=== PATIENT | female | born 1980 | race Two or more races ===

== ENCOUNTER 2024-07-30 16:10 | Emergency (ER) | payer OTHER ==
[~2024-07-30] VITALS: Ht 152.4 cm; Wt 72.6 kg
[2024-07-30] MEDS ORDERED: GENTAMICIN SULFA5 ML OTIC (17:25)
== END 2024-07-30 17:48 | disposition home or self-care (01) ==
LOC: ER 16:13
DX: H66.92 Otitis media, unspecified, left ear (principal)

== ENCOUNTER 2025-05-29 07:45 | Inpatient (IN) | payer OTHER ==
[~2025-05-29] VITALS: Ht 152.4 cm; Wt 71.7 kg
[~2025-05-29 07:45] MED LIST: GENTAMICIN SULFA5 ML OTIC
[2025-05-29 09:29] LABS: URINE APPEARANCE Clear; URINE BILIRRUBIN Negative (NEGATIVE); URINE BLOOD Negative; URINE COLOR Yellow; URINE GLUCOSE Negative (NEGATIVE); URINE KETONE Negative (NEGATIVE); URINE LEUKOCYTE Negative; URINE NITRATE Negative; URINE PROTEIN Negative (NEGATIVE); URINE UROBILINOGEN 0.2 E.U./dl
[2025-05-29 09:30] LABS: URINE EPITHELIAL CELLS 11.4 uL (0.0-38.8); URINE WBC 7.0 uL (0.0-23.2)
[2025-05-29 09:33] LABS: URINE CAST 0.00 uL (0.0-1.40); URINE RBC 0.7 uL (0.0-20.8)
[2025-05-29 09:37] VITALS: BP 116/72
[2025-05-29 09:45] LABS: BASO % 1.1 % (0.1-1.2); EOS # 0.22 (0.04-0.54); EOS % 2.9 % (0.7-7.0); LYMPH # 1.75 (1.18-3.74); LYMPH % 23.3 % (19.3-53.1); MEAN PLATELET VOLUME 11.20 fl (9.4-12.4); MONO # 0.53 (0.24-0.82); MONO % 7.1 % (4.7-12.5); NEUT # 4.91 (1.56-6.13); NEUT % 65.3 % (34.0-71.1); RED CELL DISTRIBUTION WIDTH 13.3 % (11.6-14.4)
[2025-05-29 10:01] LABS: INR 0.98
[2025-05-29 10:39] LABS: ALT/SGPT 24.0 U/L (12-78); AST/SGOT 19.0 U/L (15-37); BILIRUBIN TOTAL 0.71 mg/dL (0.3-1.2); BUN CREA RATIO 18.0 (7.0-25.0); CREATININE SERUM 0.84 mg/dL (0.55-1.02); GFR 74.35; GLOBULINA 4.3 G/DL (2.4-3.5); GLUCOSE FASTING 95.0 mg/dL (65-100); OSMOLALITY SERUM 284.0 MOSM/KG (275-295); TSH 1.7 uIU/mL (0.358-3.74)
[2025-06-05] MEDS ORDERED: CEFOXITIN SODIUM 2,000 MG VIAL IV ONE (11:17)
[2025-06-05] MEDS ORDERED: POVIDONE-IODINE 118 ML BOTT TOP ONE (11:25)
[2025-06-05] MEDS ORDERED: RINGERS SOLUTION,LACTATED 1,000 ML IV SCH (17:00)
[2025-06-05] MEDS ORDERED: SIMETHICONE 125 MG CAPSULE PO SCH (17:00)
[2025-06-05] MEDS ORDERED: ACETAMINOPHEN WITH CODEINE 1 UDTAB TABLET PO PRN (17:00)
[2025-06-05] MEDS ORDERED: CEFOXITIN SODIUM 1,000 MG VIAL IV SCH (17:00)
[2025-06-05] MEDS ORDERED: PROMETHAZINE HCL 50 MG/ML AMPUL IV SCH (18:00)
[2025-06-05] MEDS ORDERED: MORPHINE SULFATE 4 MG/ML CARTRIDGE IV SCH (18:00)
[2025-06-05 19:48] LABS: BASO % 0.3 % (0.1-1.2); EOS # 0.03 (0.04-0.54); EOS % 0.2 % (0.7-7.0); LYMPH # 0.93 (1.18-3.74); LYMPH % 5.8 % (19.3-53.1); MEAN PLATELET VOLUME 11.80 fl (9.4-12.4); MONO # 0.93 (0.24-0.82); MONO % 5.8 % (4.7-12.5); NEUT # 13.95 (1.56-6.13); NEUT % 87.6 % (34.0-71.1); RED CELL DISTRIBUTION WIDTH 13.2 % (11.6-14.4)
[2025-06-05] MEDS ORDERED: NOREPINEPHRINE BITARTRATE 1 MG/ML AMPUL IV ONE (20:46)
[2025-06-05 20:55] LABS: BASO % 0.1 % (0.1-1.2); EOS # 0.00 (0.04-0.54); EOS % 0.0 % (0.7-7.0); LYMPH # 1.14 (1.18-3.74); LYMPH % 6.7 % (19.3-53.1); MEAN PLATELET VOLUME 10.90 fl (9.4-12.4); MONO # 0.93 (0.24-0.82); MONO % 5.5 % (4.7-12.5); NEUT # 14.79 (1.56-6.13); NEUT % 87.4 % (34.0-71.1); RED CELL DISTRIBUTION WIDTH 13.1 % (11.6-14.4)
[2025-06-05] MEDS ORDERED: SOD FERRIC GLUC COMPLX/SUCROSE 125 MG in 0.9 % SODIUM CHLORIDE 100 ML IV SCH (21:09)
[2025-06-05] MEDS ORDERED: FAMOTIDINE/PF 20 MG in 0.9 % SODIUM CHLORIDE 8 ML IV PUSH SCH (21:10)
[2025-06-05] MEDS ORDERED: ACETAMINOPHEN 500 MG GEL..CAP PO PRN (21:15)
[2025-06-05] MEDS ORDERED: FAMOTIDINE/PF 20 MG/2 ML VIAL ONE (22:33)
[2025-06-05 23:12] LABS: BASO % 0.1 % (0.1-1.2); EOS # 0.00 (0.04-0.54); EOS % 0.0 % (0.7-7.0); LYMPH # 0.46 (1.18-3.74); LYMPH % 4.0 % (19.3-53.1); MEAN PLATELET VOLUME 11.40 fl (9.4-12.4); MONO # 0.39 (0.24-0.82); MONO % 3.4 % (4.7-12.5); NEUT # 10.71 (1.56-6.13); NEUT % 92.2 % (34.0-71.1); RED CELL DISTRIBUTION WIDTH 13.2 % (11.6-14.4)
[2025-06-06 01:08] LABS: BASO % 0.2 % (0.1-1.2); EOS # 0.00 (0.04-0.54); EOS % 0.0 % (0.7-7.0); LYMPH # 0.49 (1.18-3.74); LYMPH % 4.6 % (19.3-53.1); MEAN PLATELET VOLUME 10.80 fl (9.4-12.4); MONO # 0.54 (0.24-0.82); MONO % 5.0 % (4.7-12.5); NEUT # 9.65 (1.56-6.13); NEUT % 89.9 % (34.0-71.1); RED CELL DISTRIBUTION WIDTH 13.4 % (11.6-14.4)
[2025-06-06] MEDS ORDERED: RINGERS SOLUTION,LACTATED 1,000 ML IV SCH (01:45)
[2025-06-06] MEDS ORDERED: THROMBIN,HU/FIBRINOGEN/CALCIUM 10 ML SYRINGE TOP ONE (03:30)
[2025-06-06] MEDS ORDERED: SUGAMMADEX SODIUM 200 MG/2 ML VIAL IV ONE (03:30)
[2025-06-06 06:32] LABS: BASO % 0.1 % (0.1-1.2); EOS # 0.00 (0.04-0.54); EOS % 0.0 % (0.7-7.0); LYMPH # 0.95 (1.18-3.74); LYMPH % 8.0 % (19.3-53.1); MEAN PLATELET VOLUME 11.10 fl (9.4-12.4); MONO # 1.05 (0.24-0.82); MONO % 8.9 % (4.7-12.5); NEUT # 9.81 (1.56-6.13); NEUT % 82.7 % (34.0-71.1); RED CELL DISTRIBUTION WIDTH 15.2 % (11.6-14.4)
[2025-06-06] MEDS ORDERED: FAMOTIDINE/PF 20 MG/2 ML VIAL IV PUSH STA (07:17)
[2025-06-06] MEDS ORDERED: PHENOL 177 ML BOTTLE MM PRN (07:30)
[2025-06-06] MEDS ORDERED: CEFOXITIN SODIUM 2,000 MG VIAL IV ONE (12:37)
[2025-06-06 19:28] LABS: BASO % 0.4 % (0.1-1.2); EOS # 0.02 (0.04-0.54); EOS % 0.2 % (0.7-7.0); LYMPH # 2.02 (1.18-3.74); LYMPH % 17.6 % (19.3-53.1); MEAN PLATELET VOLUME 11.50 fl (9.4-12.4); MONO # 1.43 (0.24-0.82); NEUT # 7.94 (1.56-6.13); NEUT % 69.1 % (34.0-71.1); RED CELL DISTRIBUTION WIDTH 16.1 % (11.6-14.4)
[2025-06-06 19:29] LABS: MONO % 12.4 % (4.7-12.5)
[2025-06-06 19:55] LABS: INR 1.13
[2025-06-06 20:02] LABS: ALT/SGPT 18.0 U/L (12-78); AST/SGOT 18.0 U/L (15-37); BILIRUBIN TOTAL 1.17 mg/dL (0.3-1.2); BUN CREA RATIO 7.0 (7.0-25.0); CREATININE SERUM 0.7 mg/dL (0.55-1.02); GFR 91.76; GLOBULINA 2.6 G/DL (2.4-3.5); GLUCOSE FASTING 102.0 mg/dL (65-100); OSMOLALITY SERUM 288.0 MOSM/KG (275-295)
[2025-06-06] MEDS ORDERED: FAMOTIDINE/PF 20 MG/2 ML VIAL ONE (20:29)
[2025-06-06 21:17] VITALS: BP 123/83; O2SAT 100
[2025-06-06 23:53] VITALS: BP 116/78; O2SAT 99
[2025-06-07] VITALS (8 sets, daily range): BP systolic 113–122; BP diastolic 78–84; O2SAT 97–100
[2025-06-07] MEDS ORDERED: CEFOXITIN SODIUM 1,000 MG VIAL IV SCH (09:00)
[2025-06-07] MEDS ORDERED: CHLORHEXIDINE GLUCONATE 120 ML BOTTLE TOP ONE (09:08)
[2025-06-07] MEDS ORDERED: MORPHINE SULFATE 4 MG/ML VIAL IV PRN (19:00)
[2025-06-07] MEDS ORDERED: MENTHOL/CETYLPYRD CL 1 LOZENGE MM PRN (19:15)
[2025-06-08 04:00] VITALS: BP 104/70; O2SAT 97
[2025-06-08 07:02] VITALS: BP 106/72; O2SAT 96
[2025-06-08 07:47] LABS: BASO % 0.5 % (0.1-1.2); EOS # 0.19 (0.04-0.54); EOS % 1.3 % (0.7-7.0); LYMPH # 1.96 (1.18-3.74); LYMPH % 13.7 % (19.3-53.1); MEAN PLATELET VOLUME 12.20 fl (9.4-12.4); MONO # 1.12 (0.24-0.82); MONO % 7.8 % (4.7-12.5); NEUT # 10.91 (1.56-6.13); NEUT % 76.1 % (34.0-71.1); RED CELL DISTRIBUTION WIDTH 15.9 % (11.6-14.4)
[2025-06-08] MEDS ORDERED: NAPROXEN 500 MG TABLET PO SCH (09:24)
[2025-06-08] MEDS ORDERED: ACETAMINOPHEN WITH CODEINE 1 UDTAB TABLET PO PRN (09:30)
[2025-06-08 12:24] VITALS: BP 131/89; O2SAT 100
[2025-06-08 15:21] VITALS: BP 116/75; O2SAT 100
[2025-06-08 20:16] VITALS: BP 125/77; O2SAT 98
[2025-06-08 20:21] VITALS: BP 102/68; O2SAT 98
[2025-06-09 02:44] VITALS: BP 96/64; O2SAT 98
[2025-06-09 08:00] VITALS: BP 141/94; O2SAT 97
[2025-06-09 15:00] VITALS: BP 107/75; O2SAT 98
[2025-06-10 01:09] VITALS: BP 96/56; O2SAT 97
[2025-06-10 08:00] VITALS: BP 128/72; O2SAT 96
[2025-06-10] MEDS ORDERED: Tylenol #3 PO (09:03)
[2025-06-10] MEDS ORDERED: FUSION PLUS CA1 EACH PO (09:03)
[2025-06-10] MEDS ORDERED: NAPR500T14 PO (09:03)
== END 2025-06-10 19:49 | disposition home or self-care (01) | DRG 742 ==
LOC: SURH 06-05 07:45 → OB/GYN 06-05 08:21 → O/R 06-05 08:21 → SURH 06-05 11:45 → OB/GYN 06-05 17:42 → O/R 06-06 16:34 → ICU 06-06 20:57 → SURH 06-08 12:59
PROVIDERS: ADMIT Obstetrics & Gynecology; ATTEND Obstetrics & Gynecology
PROC: 0TQB0ZZ Repair Bladder, Open Approach (ICD-10-PCS; 2025-06-05)
PROC: 0TJB8ZZ Inspection of Bladder, Via Natural or Artificial Opening Endoscopic (ICD-10-PCS; 2025-06-05)
PROC: 30233N1 Transfusion of Nonautologous Red Blood Cells into Peripheral Vein, Percutaneous Approach (ICD-10-PCS; 2025-06-05)
PROC: 0UT97ZZ Resection of Uterus, Via Natural or Artificial Opening (ICD-10-PCS; principal; 2025-06-05 11:45)
PROC: 0W3G0ZZ Control Bleeding in Peritoneal Cavity, Open Approach (ICD-10-PCS; 2025-06-06)
PROC: 30233K1 Transfusion of Nonautologous Frozen Plasma into Peripheral Vein, Percutaneous Approach (ICD-10-PCS; 2025-06-06)
PROC: 8E0ZXY6 Isolation (ICD-10-PCS; 2025-06-08)
DX: N84.0 Polyp of corpus uteri (principal); N99.71 Accidental puncture and laceration of a genitourinary system organ or structure during a genitourinary system procedure; N99.820 Postprocedural hemorrhage of a genitourinary system organ or structure following a genitourinary system procedure; N72 Inflammatory disease of cervix uteri; N81.11 Cystocele, midline